=== PATIENT | female | born 1985 | race Hispanic/Latino ===

== ENCOUNTER 2018-05-05 16:58 | Emergency (ER) | payer OTHER ==
[~2018-05-05] VITALS: Ht 170.2 cm; Wt 72.6 kg
--- NOTE | 2018-05-05 19:03 | Diagnostic Imaging Report ---
Exam: Head CT without IV contrast Exam: Head CT without contrast History: Headache Comparison studies: None Technique: Axial images were obtained from the skull base to the vertex. Coronal and sagittal images reconstructed from the axial data. Dose modulation, iterative reconstruction, and/or weight based adjustment of the mA/kV was utilized to reduce the radiation dose to as low as reasonably achievable. Radiation dose: Total DLP: 848 mGy*cm. Estimated effective dose: DLP x 0.015 Intravenous contrast: None Findings: Scalp: No abnormalities. Bones: No fractures, blastic or lytic lesions. Brain sulci: Appropriate for age. Ventricles: Normal in size and configuration. No hydrocephalus. Extra-axial spaces: No masses, no fluid collection. Parenchyma: No abnormal densities. No masses, acute hemorrhage, acute or chronic vascular insults. Sellar/suprasellar region: No abnormalities. 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 The inferior margin of the left cervical tonsil lies outside imaged of view and cannot further be assessed.. IMPRESSION: No acute intracranial abnormalities. Signed by: Dr. Catrachito David M.D. on 05/05/2018 7:00 PM
== END 2018-05-05 19:29 | disposition home or self-care (01) ==
LOC: FSED 16:58
DX: G44.211 Episodic tension-type headache, intractable (principal); E03.9 Hypothyroidism, unspecified
CPT/HCPCS: 70450; 81025; 99284

== ENCOUNTER → 2019-05-06 | Outpatient (CLI) | payer OTHER ==
--- NOTE | 2019-05-06 10:40 | Diagnostic Imaging Report ---
EXAMINATION: SP LUMBAR, COMPLETE MIN 4VW INDICATION: Lumbar spine pain COMPARISON: None FINDINGS: No compression fracture. Vertebral body heights are well-maintained. Alignment appears anatomic. No substantial degenerative change. IMPRESSION: No compression fracture. Normal lumbar spine alignment. Signed by: Danny Elizalde MD on 05/06/2019 10:37 AM
== END ==
LOC: RAD 09:35
PROVIDERS: ATTEND Family Medicine
DX: M54.5 Low back pain (principal)
CPT/HCPCS: 72110